=== PATIENT | female | born 1940 | race Caucasian/White ===

== ENCOUNTER → 2016-05-30 | Outpatient (CLI) | payer MEDICARE, OTHER ==
[~2016-05-30] MED LIST: ACET-2321 PO; ASPI-1115 PO; CALC1TAB3 PO; CYCL5TAB PO; DOCU-168 PO; DULO60CA56 PO; FERR-49 PO; GABA-336 PO; MULT-934 PO; OXYC-544 PO; RED600CA6 PO; TETR15DR99 BOTH EYES; VITA1TAB21 PO
--- NOTE | 2016-05-30 16:36 | DI ---
Indication: ITS.REASON: S09.90XA HEAD INJURY PROCEDURE: CT HEAD W/O CONTRAST: Encounter: Initial Comparison: September 30, 2015 Technique: Axial CT images through the head were performed without contrast. Iterative Reconstruction dose reducing technique was utilized. FINDINGS: The ventricles are of normal size, shape, and configuration for the patient's age. There is no evidence of acute intracranial hemorrhage, midline displacement, or mass effect. There are scattered areas of low attenuation in the white matter which most likely represent changes of chronic microvascular ischemia. The CT attenuation of the brain parenchyma is otherwise normal within the cerebellum, brain stem, and cerebral hemispheres. The tympanic cavities and mastoid air cells are free of appreciable disease. There are no definite fractures of the skull base, calvarium, or visualized portion of the midface. Frontal scalp swelling and hematoma. IMPRESSION: No CT evidence of acute traumatic intracranial injury. .
--- NOTE | 2016-05-30 16:44 | DI ---
Indication: ITS.REASON: S09.90XA HEAD INJURY PROCEDURE: CT MAXILLOFACIAL W/O CONTRAST: Encounter: Initial Comparison: None Technique: Axial noncontrast CT images through the mid face were performed with coronal and sagittal two-dimensional reformats. Automated Exposure Control and Iterative Reconstruction dose reducing techniques were utilized. Findings: Significant frontal soft tissue swelling and hematoma. No acute maxillofacial fracture identified. The nasal arches appear intact. Paranasal sinuses are grossly clear. Artifact from prior dental restorations. Degenerative change in the right temporomandibular joint noted incidentally. Degenerative change in the visualized upper cervical spine. The globes are intact. Lenses are located. Impression: No acute maxillofacial fracture seen. Prominent frontal extracranial swelling and hematoma. .
== END ==
LOC: IMA 16:02
PROVIDERS: ATTEND Family Medicine
DX: S06.370A Contusion, laceration, and hemorrhage of cerebellum without loss of consciousness, initial encounter (principal); W17.89XA Other fall from one level to another, initial encounter; Y93.01 Activity, walking, marching and hiking; Y92.007 Garden or yard of unspecified non-institutional (private) residence as the place of occurrence of the external cause; Y99.9 Unspecified external cause status; M79.89 Other specified soft tissue disorders

== ENCOUNTER 2017-06-21 15:43 | Inpatient (IN) ==
[2017-06-21 16:42] VITALS: BMI 34.5
[2017-06-21] MEDS ORDERED: DOCUSATE SODIUM 100 MG CAPSULE PO PRN ×2 (18:02→19:02)
[2017-06-21] MEDS ORDERED: SENNA + DOCUSATE TABLET PO PRN (18:02)
[2017-06-21] MEDS ORDERED: FALL RISK - PHARMACY CONSULT MC ONE (18:17)
[2017-06-21] MEDS ORDERED: FUROSEMIDE 20 MG TABLET PO SCH (19:03)
[2017-06-21] MEDS: HYDROCODONE/APAP 5mg/325mg TABLET PO PRN (19:18)
[2017-06-21] MEDS: RIVAROXABAN 20 MG TABLET PO SCH (19:18)
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
--- NOTE | 2017-06-21 22:00 | IRU 24Hr Post Admit Eval ---
24 Hr Post Admission Physical - Relevant Changes Relevant Changes: No Reviewed: I have reviewed the patient's information and concur with the finding and results of the pre-admission screen. Certification: I certify the patient for rehabilitation. - Patient Condition (1) Radius and ulna distal fracture Status: Acute Qualifiers: Encounter type: initial encounter Fracture type: closed Laterality: right Qualified Code(s): S52.501A - Unspecified fracture of the lower end of right radius, initial encounter for closed fracture; S52.601A - Unspecified fracture of lower end of right ulna, initial encounter for closed fracture Code(s): S52.509A - Unspecified fracture of the lower end of unspecified radius , initial encounter for closed fracture; S52.609A - Unspecified fracture of lower end of unspecified ulna, initial encounter for closed fracture Classification: IRF Tx That Should Address Diagnosis, Diagnosis Requiring Medical Follow Up (2) Atrial fibrillation Status: Chronic Qualifiers: Atrial fibrillation type: permanent Qualified Code(s): I48.2 - Chronic atrial fibrillation Code(s): I48.91 - Unspecified atrial fibrillation Classification: Present on IRF Admission, IRF Tx That Should Address Diagnosis, Diagnosis Requiring Medical Follow Up (3) Thrombocytopenia Status: Acute Code(s): D69.6 - Thrombocytopenia, unspecified Classification: Present on IRF Admission, IRF Tx That Should Address Diagnosis, Diagnosis Requiring Medical Follow Up (4) Acute blood loss anemia Status: Acute Code(s): D62 - Acute posthemorrhagic anemia Classification: Present on IRF Admission, IRF Tx That Should Address Diagnosis, Diagnosis Requiring Medical Follow Up - Prior Functional Status Lives With: Alone Residence Type: Apartment/Private Home Assitive Devices: Straight Cane Prior Functional Status: Indep. at home or school, Indep. w/ all home ADL, Indep. w/ IADL - Current Functional Status Current Level of Function: Patient's current level of functioning is as follows: She requires supervision for eating due to the fact that her right wrist has been operated on and she is wearing a cast. She requires minimum assistance for grooming as well as upper and lower body dressing and walking with a single-point cane. She requires moderate assistance for bathing, supervision for toileting and transfers and toilet transfers. She is able to ambulate 160 feet with the single-point cane but as mentioned she is right-hand dominant and there is some concern about safety with using her left hand with ambulation. Patient does have a right toe "drag" during ambulation of uncertain origin or significance. Patient Requirements: The patient requires oversight by rehabilitation physician to manage their rehabilitation treatment plan and multidisciplinary approach to care that can only be provided in an IRF and requires a multidisciplinary approach to care, provided by professional PTs, OTs, STs, dieticians, RTs, rehabilitation nurses and is not available in lesser levels of care. Limitations Req: Mobility Impairment, ADL Impairment Physical Therapy Minutes: 90 Occupational Therapy Minutes: 90 Therapy: The patient is to receive therapy at least 5 days a week. ROM Deficit: Right Upper Extremity - Complications/Comorbidities Impact on Functional Outcomes: The patient's fracture of her dominant hand will negatively impact her functional outcome. Barriers to Discharge: Weakness, Balance, Pain Control - Plan to Avoid Complications Plan to Avoid Complications: The patient cannot receive this care in a lesser intensive setting such as Assisted or Outpatient Therapy due to the patient requiring the following :close monitoring of her blood count in view of the acute blood loss anemia, monitoring of her heart rate in view of atrial fibrillation. She will require close monitoring of her pain management as well as evidence of continued acute blood loss. She requires a multidisciplinary approach with physical therapy, occupational therapy and 24 hour nursing supervision along with medical oversight.
[2017-06-22] MEDS: VITAMIN B COMPLEX + C TABLET PO SCH (08:37)
[2017-06-22] MEDS: CELECOXIB 200 MG CAPSULE PO SCH (08:37)
[2017-06-22] MEDS: CALCIUM CARBONATE 600 MG TABLET PO SCH (08:37)
[2017-06-22] MEDS: DULOXETINE 60 MG CAPSULE PO SCH (08:37)
[2017-06-22] MEDS: CETIRIZINE 10 MG TABLET PO SCH (08:38)
[2017-06-22] MEDS: FUROSEMIDE 20 MG TABLET PO SCH ×2 (08:42→17:49)
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
[2017-06-22] MEDS ORDERED: FUROSEMIDE 20 MG TABLET PO SCH (09:00)
[2017-06-22] MEDS ORDERED: RIVAROXABAN 20 MG TABLET PO SCH (17:30)
[2017-06-22] MEDS: RIVAROXABAN 20 MG TABLET PO SCH (17:50)
[2017-06-22] MEDS: HYDROCODONE/APAP 5mg/325mg TABLET PO PRN (19:40)
[2017-06-23] MEDS: HYDROCODONE/APAP 5mg/325mg TABLET PO PRN ×2 (02:59→20:49)
[2017-06-23] MEDS: CELECOXIB 200 MG CAPSULE PO SCH (08:45)
[2017-06-23] MEDS: VITAMIN B COMPLEX + C TABLET PO SCH (08:46)
[2017-06-23] MEDS: CETIRIZINE 10 MG TABLET PO SCH (08:46)
[2017-06-23] MEDS: FUROSEMIDE 20 MG TABLET PO SCH ×2 (08:46→17:43)
[2017-06-23] MEDS: CALCIUM CARBONATE 600 MG TABLET PO SCH (08:46)
[2017-06-23] MEDS: DULOXETINE 60 MG CAPSULE PO SCH (08:46)
--- NOTE | 2017-06-23 11:02 | IRU Progress Note ---
- Subjective/Serverity of Illness Date: 06/23/17 Cathy is progressing with therapy. She is quite talkative. Reports pain is adequately controlled. She has several concerns regarding eyedrops as well as the hematoma in the right forehead area. This is tender to palpate. However there is no evidence of active infection at present. She has a normal evolution of blood products and bruising involving the right side of her face. The patient's acute blood loss anemia is improved with hemoglobin back up to 11.9. She has no evidence of ongoing bleeding. She denies any chest pain or shortness of breath. Her appetite remains good. She has used eyedrops at home with regard to allergies and dry eyes and we will make these available here as well. Review of therapy notes indicates that the patient has been functioning with contact-guard assistance for transfers and car transfers. Her previously noted low platelet count has resolved. Exam Vital Signs: Temperature 97.8 F 06/23/17 08:00 Pulse Rate 58 L 06/23/17 08:00 Respiratory Rate 16 06/23/17 08:00 Blood Pressure 134/63 06/23/17 08:00 Pulse Oximetry 93 06/23/17 08:00 Height/Weight/BMI: Height 1.47 m Weight 75.3 kg Body Mass Index 34.5 - Constitutional Present: no acute distress, well nourished, well developed, cooperative Comments: Loquacious - Routine HEENT Exam Head: Present: normocephalic Eye: Present: EOMI ENT: Present: mucous membranes moist, oropharynx clear Comments: Hematoma receding a bit in the right forehead area. Extensive ecchymoses with normal evolution of color around the right eye and down to the right cheek. Hematoma is tender. No evidence of infection. - Routine Neck Exam Present: supple - Routine Respiratory Exam Present: CTA bilaterally. Absent: wheezes - Routine Cardiovascular Exam Present: S1, S2, irregularly irregular. Absent: murmur, S3, S4 - Routine Abdominal Exam Present: soft, normoactive bowel sounds, non distended. Absent: tenderness - Routine Extremities Exam Present: no edema, normal capillary refill Comments: Right upper extremity remains in cast. No evidence of neuro-vascular compromise in the exposed fingers. - Routine Skin Exam Present: dry, warm, ecchymosis (Right face) - Routine Neurological Exam Present: alert, oriented X3, CN II-XII intact - Routine Psychiatric Exam Present: normal affect, cooperative, good insight, good judgment, anxious Results IRU - Labs Labs: reviewed chart data and labs IRU A/P (1) Radius and ulna distal fracture Qualifiers: Encounter type: initial encounter Fracture type: closed Laterality: right Qualified Code(s): S52.501A - Unspecified fracture of the lower end of right radius, initial encounter for closed fracture; S52.601A - Unspecified fracture of lower end of right ulna, initial encounter for closed fracture Current visit: No Status: Acute Pain control appears to be adequate. She is cooperative and progressing with therapy. (2) Atrial fibrillation Qualifiers: Atrial fibrillation type: permanent Qualified Code(s): I48.2 - Chronic atrial fibrillation Current visit: Yes Status: Chronic Remains on Xarelto without evidence of further bleeding. (3) Thrombocytopenia Current visit: Yes Status: Resolved Review of platelet count reveals normalization at 245,000. (4) Acute blood loss anemia Current visit: Yes Status: Resolved Repeat hemoglobin shows improvement. No evidence of ongoing bleeding. (5) Allergic conjunctivitis Current visit: Yes Status: Acute DVT Prophylaxis: Xarelto Resuscitation Status: Full Code - Course Hospital Course: Remington Wilson MD: 06/23/17 11:04 Patient is quite talkative which delays progress a bit. Denies dyspnea. Pain management adequate. Would like some eyedrops for dry eyes. Progressing with therapy. Hemoglobin repeat is improved. - Interventions to Obtain Goals PT Treatment Plan: Balance/Proprioception, Functional Activities, Gait Training , Patient/Family Education, Therapeutic Exercise OT Treatment Plan: ADL (Basic Care), Balance Training, IADL, Pt./Family Education, Ther. Exercise for ADL Goals Progress/Modifications: Discussed with patient her progress. She is cooperative with therapy. We will add on some eyedrops for dry eyes. She remains on Xarelto without active bleeding. Her hemoglobin is improved and platelets have returned to normal.Please note that the patient's individual plan of care was developed and documented today, requiring review of therapy notes, medical conditions and anticipated functional recovery. This required additional medical decision making with regard to interaction of the patient's medical issues with the anticipated functional recovery. Please see separate document.
--- NOTE | 2017-06-23 11:08 | IRU Plan of Care ---
[facility] Overall Plan of Care - Date Date: 06/23/17 - Patient Impairments (1) Radius and ulna distal fracture Qualifiers: Encounter type: initial encounter Fracture type: closed Laterality: right Qualified Code(s): S52.501A - Unspecified fracture of the lower end of right radius, initial encounter for closed fracture; S52.601A - Unspecified fracture of lower end of right ulna, initial encounter for closed fracture Code(s): S52.509A - Unspecified fracture of the lower end of unspecified radius , initial encounter for closed fracture; S52.609A - Unspecified fracture of lower end of unspecified ulna, initial encounter for closed fracture Status: Acute Classification: IRF Tx That Should Address Diagnosis, Diagnosis Requiring Medical Follow Up (2) Atrial fibrillation Qualifiers: Atrial fibrillation type: permanent Qualified Code(s): I48.2 - Chronic atrial fibrillation Code(s): I48.91 - Unspecified atrial fibrillation Status: Chronic Classification: Present on IRF Admission, IRF Tx That Should Address Diagnosis, Diagnosis Requiring Medical Follow Up (3) Thrombocytopenia Code(s): D69.6 - Thrombocytopenia, unspecified Status: Resolved Classification: Present on IRF Admission, IRF Tx That Should Address Diagnosis, Diagnosis Requiring Medical Follow Up (4) Acute blood loss anemia Code(s): D62 - Acute posthemorrhagic anemia Status: Resolved Classification: Present on IRF Admission, IRF Tx That Should Address Diagnosis, Diagnosis Requiring Medical Follow Up (5) Allergic conjunctivitis Qualifiers: Laterality: bilateral Qualified Code(s): H10.13 - Acute atopic conjunctivitis, bilateral Code(s): H10.10 - Acute atopic conjunctivitis, unspecified eye Status: Acute Classification: IRF Tx That Should Address Diagnosis - Relevant Changes Relevant Changes: No Reviewed: I have reviewed the patient's information and concur with the finding and results of the pre-admission screen. Certification: I certify the patient for rehabilitation. - Medical Prognosis Medical Prognosis: Good Vital Signs: Last Vital Signs Temp 97.8 F 06/23/17 08:00 Pulse 58 L 06/23/17 08:00 Resp 16 06/23/17 08:00 BP 134/63 06/23/17 08:00 Pulse Ox 93 06/23/17 08:00 - Anticipated Interventions Anticipated Interventions: The patient requires inpatient IRF care for PT, OT, and/or ST for residuals remaining from fracture of right distal radius and ulnar with surgical repair resulting in muscular weakness and strength deficits. ROM Deficit: Right Upper Extremity Strength Deficits: Right Upper Extremity - Current Functional Status Failed Alternative Therapy: Arrived from Acute Care Patient Requires: The patient requires oversight by rehabilitation physician to manage their rehabilitation treatment plan and multidisciplinary approach to care that can only be provided in an IRF and requires a multidisciplinary approach to care, provided by professional PTs, OTs, STs, rehabilitation nurses, and may require STs, dieticians, and RTS. This is not available in lesser levels of care. Physical Therapy Minutes: 90 Occupational Therapy Minutes: 90 Therapy: The patient is to receive therapy at least 5 days a week. - Anticipated LOS/Outcomes Anticipated Functional Outcome: It is anticipated the patient will be able to return to her own home at modified independent level of functioning, able to perform ADLs and safely care for herself. It is anticipated her pain will be controlled and her hemoglobin will be stable. Anticipated Length of Stay (days): 4 Anticipated DC Destination: Home, Self Prison Safety Plan: The patient will be provided with the development of a Home Safety Plan for return to a home or home-like environment and and to ensure safety post discharge. - Plan to Avoid Complications Barriers to Attaining Goals: Weakness, Balance Plan to Avoid Complications: The patient cannot receive this care in a lesser intensive setting such as Senior Care or Outpatient Therapy due to the patient requiring the following : Patient requires 24 hour rehabilitation nursing monitoring for pain control, evidence of continued bleeding as well as a multidisciplinary approach with PT and OT and medical supervision. This is best achieved in the inpatient rehabilitation setting.
[2017-06-23] MEDS: RIVAROXABAN 20 MG TABLET PO SCH (17:43)
[2017-06-24] MEDS: HYDROCODONE/APAP 5mg/325mg TABLET PO PRN ×2 (04:52→17:14)
[2017-06-24] MEDS: CELECOXIB 200 MG CAPSULE PO SCH (09:01)
[2017-06-24] MEDS: VITAMIN B COMPLEX + C TABLET PO SCH (09:01)
[2017-06-24] MEDS: CETIRIZINE 10 MG TABLET PO SCH (09:01)
[2017-06-24] MEDS: DULOXETINE 60 MG CAPSULE PO SCH (09:01)
[2017-06-24] MEDS: FUROSEMIDE 20 MG TABLET PO SCH ×2 (09:01→17:11)
[2017-06-24] MEDS: CALCIUM CARBONATE 600 MG TABLET PO SCH (09:01)
[2017-06-24] MEDS: RIVAROXABAN 20 MG TABLET PO SCH (17:11)
[2017-06-24] MEDS: ARTIFICIAL TEARS 15ml EACH EYE PRN (21:05)
[2017-06-25] MEDS: DULOXETINE 60 MG CAPSULE PO SCH (09:17)
[2017-06-25] MEDS: CELECOXIB 200 MG CAPSULE PO SCH (09:17)
[2017-06-25] MEDS: FUROSEMIDE 20 MG TABLET PO SCH ×2 (09:18→17:49)
[2017-06-25] MEDS: CALCIUM CARBONATE 600 MG TABLET PO SCH (09:18)
[2017-06-25] MEDS: CETIRIZINE 10 MG TABLET PO SCH (09:18)
[2017-06-25] MEDS: HYDROCODONE/APAP 5mg/325mg TABLET PO PRN ×2 (09:22→19:26)
[2017-06-25] MEDS: VITAMIN B COMPLEX + C TABLET PO SCH (09:23)
[2017-06-25] MEDS: RIVAROXABAN 20 MG TABLET PO SCH (17:49)
[2017-06-25] MEDS: ARTIFICIAL TEARS 15ml EACH EYE PRN (22:02)
[2017-06-26] MEDS: HYDROCODONE/APAP 5mg/325mg TABLET PO PRN ×2 (02:51→09:15)
[2017-06-26] MEDS: CELECOXIB 200 MG CAPSULE PO SCH (08:45)
[2017-06-26] MEDS: CETIRIZINE 10 MG TABLET PO SCH (08:45)
[2017-06-26] MEDS: CALCIUM CARBONATE 600 MG TABLET PO SCH (08:45)
[2017-06-26] MEDS: DULOXETINE 60 MG CAPSULE PO SCH (08:45)
[2017-06-26] MEDS: VITAMIN B COMPLEX + C TABLET PO SCH (08:45)
[2017-06-26] MEDS: FUROSEMIDE 20 MG TABLET PO SCH ×2 (08:46→17:37)
--- NOTE | 2017-06-26 10:48 | IRU Progress Note ---
- Subjective/Serverity of Illness Date: 06/26/17 Cathy was interviewed and examined in her room on inpatient rehabilitation. She states that her bowels are moving well and she would like to not be offered the Colace etc. This will be discontinued per her request. She does note some ecchymoses of the right fingers as well as up into the right elbow area. This is the affected side from her surgery. She is on Xarelto and realizes this as well. Pain appears to be adequately controlled. She is using an ice pack. Brief therapy update: Lower body dressing requires contact-guard assistance for upper body dressing is now independent. Toilet transfers are with standby assist. Bed/chair/wheelchair transfers are with contact-guard assistance. She is able to ambulate 184 feet with standby assistance with a straight cane although has poor balance and poor safety awareness. Update on medical issues reactively monitoring and managing as follows: 1. Status post open reduction internal fixation of right distal radial fracture. Patient also has distal ulnar fracture. Her pain is adequately controlled. She has several questions about the fracture which I attempted to address. She is wearing her sling and able to manage reasonably well. She is improving with therapy. 2. Acute blood loss anemia with hemoglobin dropping from 13.1 on June 18 down to 10.8 on 06/21/2017. Hemoglobin has been stable at 11.5 here on rehabilitation. 3. Thrombocytopenia at 112,000. Other than the anticipated bruising with regard to the fracture, she has evidenced no sign of active bleeding. Her platelets have now normalized at over 300,000. 4. Atrial fibrillation, on chronic anti-coagulation with Xarelto. She remains on Xarelto without known side effects. Her atrial fibrillation is stable and without evidence of rapid ventricular response. Exam Vital Signs: Temperature 98.6 F 06/26/17 08:00 Pulse Rate 64 06/26/17 08:00 Respiratory Rate 18 06/26/17 08:00 Blood Pressure 138/61 06/26/17 08:00 Pulse Oximetry 96 06/26/17 08:00 Height/Weight/BMI: Height 1.47 m Weight 74 kg Body Mass Index 34.5 - Constitutional Present: no acute distress, well nourished, well developed, obese, cooperative - Routine HEENT Exam Eye: Present: EOMI ENT: Present: mucous membranes moist, oropharynx clear - Routine Neck Exam Present: supple - Routine Respiratory Exam Present: CTA bilaterally. Absent: wheezes - Routine Cardiovascular Exam Present: S1, S2, irregularly irregular. Absent: murmur, S3, S4 - Routine Abdominal Exam Present: soft, normoactive bowel sounds, non distended. Absent: tenderness - Routine Extremities Exam Present: no edema, normal capillary refill Comments: There is the typical expected amount of ecchymoses involving the right fingers. Fingers are moving adequately and there is no evidence of vascular nor neurologic compromise. - Routine Skin Exam Present: dry, warm, ecchymosis - Routine Neurological Exam Present: alert, oriented X3, CN II-XII intact - Routine Psychiatric Exam Present: normal affect, normal thought process, cooperative, anxious Results IRU - Labs Labs: I have reviewed her laboratory and other providers notes. IRU A/P (1) Radius and ulna distal fracture Qualifiers: Encounter type: initial encounter Fracture type: closed Laterality: right Qualified Code(s): S52.501A - Unspecified fracture of the lower end of right radius, initial encounter for closed fracture; S52.601A - Unspecified fracture of lower end of right ulna, initial encounter for closed fracture Current visit: No Status: Acute Clinically she seems to be doing well with regard to the fracture. She does have the expected amount of ecchymoses but there is no evidence of vascular nor neurologic compromise distally. Pain is adequately controlled. (2) Atrial fibrillation Qualifiers: Atrial fibrillation type: permanent Qualified Code(s): I48.2 - Chronic atrial fibrillation Current visit: Yes Status: Chronic Seems to be in chronic atrial fibrillation. Tolerating Xarelto without difficulty. (3) Thrombocytopenia Current visit: Yes Status: Resolved (4) Acute blood loss anemia Current visit: Yes Status: Resolved (5) Allergic conjunctivitis Qualifiers: Laterality: bilateral Qualified Code(s): H10.13 - Acute atopic conjunctivitis, bilateral Current visit: Yes Status: Acute DVT Prophylaxis: Xarelto Resuscitation Status: Full Code - Course Hospital Course: Remington Wilson MD: 06/23/17 11:04 Patient is quite talkative which delays progress a bit. Denies dyspnea. Pain management adequate. Would like some eyedrops for dry eyes. Progressing with therapy. Hemoglobin repeat is improved. 06/26/17 10:50 Discontinue Colace. Tolerating therapy well and improving. Pain management adequate. - Interventions to Obtain Goals PT Treatment Plan: Balance/Proprioception, Functional Activities, Gait Training , Patient/Family Education, Therapeutic Exercise OT Treatment Plan: ADL (Basic Care), Balance Training, IADL, Pt./Family Education, Ther. Exercise for ADL Goals Progress/Modifications: She requests that we discontinue the Colace which was accomplished this morning. She has several questions about her fracture and ecchymoses etc. These were addressed. Exam of the right hand indicates good healing and no evidence of neurovascular compromise. She has questions about the sling. She does have evidence of poor balance and poor safety awareness. Despite this she is improving with both PT and OT.
--- NOTE | 2017-06-26 12:52 | Progress Note ---
- Date 06/26/17 Subjective: Cathy was seen before lunch. She thinks the bruising is better on her face, but now has more bruising/swelling to her left arm, distal to her splint. She has chronic paresthesias to her hands. She reports occasional dizziness. She denies chest pain or dyspnea. She denies abdominal pain or nausea. She thinks she's on too many laxatives and asked to reduce those meds. Objective Vital signs: Temperature 98.6 F 06/26/17 08:00 Pulse Rate 64 06/26/17 08:00 Respiratory Rate 18 06/26/17 08:00 Blood Pressure 138/61 06/26/17 08:00 Pulse Oximetry 96 06/26/17 08:00 Height/Weight/BMI: Height 1.47 m Weight 74 kg Body Mass Index 34.5 - Constitutional Present: no acute distress, well nourished, well developed - Routine HEENT Exam Head: Present: hematoma (hematoma to right forehead is slowly improving. The bruising/swelling on the right side of her face is fading.). Absent: atraumatic Eye: Present: PERRL. Absent: conjunctival icterus, scleral injection ENT: Present: oropharynx clear - Routine Respiratory Exam Present: CTA bilaterally - Routine Cardiovascular Exam Present: RRR, S1, S2 - Routine Abdominal Exam Present: soft, normoactive bowel sounds, non distended, non tender - Routine Extremities Exam Present: edema (BLE) Comments: compression socks in place (she brought hers from home) - Routine Musculoskeletal Exam Musculoskeletal: Present: other (splint to right forearm) - Routine Skin Exam Present: intact, dry, warm - Routine Neurological Exam Present: alert, oriented X3, moving all extremities, vision grossly intact, hearing grossly intact, normal speech - Routine Psychiatric Exam Present: normal affect, normal thought process, cooperative Results - Labs CBC & Chem 7: 06/26/17 04:35 06/26/17 04:35 Assessment and Plan Assessment and Plan: ASSESSMENT S/P ORIF right radius/ulnar fracture ABLA Minor head injury: Hematoma/contusion right forehead Hypernatremia Atrial fibrillation, on Xarelto Hx breast CA 2006 without known recurrence Allergic rhinitis OA PLAN Hgb stable at 11.5. Hypernatremia has resolved. She has applied her own compression socks for leg edema. Weights have been stable. Vitals stable. DVT Prophylaxis: Xarelto Resuscitation Status: Full Code - Physician Narrative Physician: Fatou Sandoval MD Narrative: Date: 06/26/17 Time: 1835 Ms. Valentine was independently interviewed and examined by me. She is just back from dinner and trying to take a nap. She denies any complaints. Specifically no fever or chills. No shortness of breath. No cough or sputum production. No chest pain or palpitations. No nausea, vomiting, diarrhea or constipation. She has requested to back off the stool softeners as her bowels are moving really really well. She does have some mild lower extremity edema and is wearing compression stockings at this time. Physical exam: Gen: alert and oriented. NAD Skin: warm and dry, considerable ecchymosis on the right side of her face, the not on her right sided for head looks a little smaller today HEENT: NC/AT PERRL, EOMI, Sclera, lids and conjunctiva wnl, MMM, OP clear Neck: supple. No JVD, Carotids 2+ without bruits. Lungs: clear, No rales, rhonchi, wheezes. CV: regular. Soft murmur Abd: soft. NT/ND, +BS MS: 2+ edema Good strength and ROM. Right arm in cast Neuro: No focal deficit Psy: normal mood and affect I have reviewed the patient's labs, notes and imaging. Patient was discussed with nurse practitioner and I agree with the assessment and plan as documented above. Hospital Course Summary Disclaimer: The visit summary below is not to be considered part of the above Progress Note. Hospital Course: 06/22/17 PT/OT per attending to address functional deficits from ORIF and safe ambulation d/t intermittent dizziness. ABLA - hgb improved to 11.9 Hypernatremia (Na 149) - encourage PO intake. A-fib - EKG showed sinus. Cont Xarelto. Fluid retention - daily weights 06/26/17 Hgb stable at 11.5. Hypernatremia has resolved. She has applied her own compression socks for leg edema. Weights have been stable.
--- NOTE | 2017-06-26 13:58 | IRU Team Meeting ---
IRU Team Meeting - Nursing Bladder Assistive Devices Utilized:: Absorbent Pad Bladder Management Level of Assist: Modified Independent Bladder Frequency of Accidents: No accidents Bowel Assistive Devices Utilized:: Medication Bowel Management Level of Assist: Modified Independent Bowel Frequency of Accidents: No accidents Vital Signs: Vital Signs - 24 hr 06/25/17 16:00 06/25/17 19:20 06/26/17 08:00 Temperature 98.0 F 98.0 F 98.6 F Pulse Rate 56 L 67 64 Respiratory Rate 18 14 18 Blood Pressure 132/60 137/59 138/61 Pulse Oximetry 93 99 96 Current Medications: Acetaminophen (Tylenol) 500 mg PO Q4H PRN PRN Reason: Pain Hydrocodone Bitart/Acetaminophen ([place] 5/325) 1 - 2 tab PO Q6H PRN PRN Reason: Pain Last Admin: 06/26/17 09:15 Dose: 1 tab Artificial Tears (Tears Naturale) 1 drops EACH EYE PRN PRN PRN Reason: Dry eyes Last Admin: 06/25/17 22:02 Dose: 1 drops Calcium Carbonate (Caltrate) 600 mg PO DAILY [facility] Last Admin: 06/26/17 08:45 Dose: 600 mg Celecoxib (Celebrex) 200 mg PO WB [facility] Last Admin: 06/26/17 08:45 Dose: 200 mg Cetirizine HCl (Zyrtec) 10 mg PO DAILY [facility] Last Admin: 06/26/17 08:45 Dose: 10 mg Duloxetine HCl (Cymbalta) 60 mg PO DAILY [facility] Last Admin: 06/26/17 08:45 Dose: 60 mg Furosemide (Lasix 20 Mg Tab) 10 mg PO [id number] [facility] Last Admin: 06/26/17 08:46 Dose: 10 mg Magnesium Hydroxide (Mom) 30 ml PO DAILY PRN PRN Reason: Constipation Multivitamins (Total B + C) 1 tab PO DAILY [facility] Last Admin: 06/26/17 08:45 Dose: 1 tab Potassium Chloride (K-Dur 20 Meq Tablet) 20 meq PO BIDWM [facility] Last Admin: 06/26/17 08:45 Dose: 20 meq Rivaroxaban (Xarelto) 20 mg PO WS [facility] Last Admin: 06/25/17 17:49 Dose: 20 mg Current Medical Issues: fracture of distal ulna and radius, atrial fib, acute blood loss anemia Comments: I certify that I personally led the interdisciplinary team meeting and agree with comments, barriers and goals indicated. Team meeting was held in the patient's room with the patient and the following family members present: patient's daughter Vero via speakerphone Ms. Valentine is very cooperative. Pain management is adequate. She finds most benefit by the use of an ice pack on the left forearm. Her anemia is stable to improved at 11.5. She is progressing with therapy. - Physical Therapy Bed, Chair, Wheelchair Transfer Assist: Contact Guard Assistance Ambulation Ability: Stand By Assist/Supervision Ambulation Distance: 184 Stair Climbing Ability: Stand By Assist/Supervision, Household Exception Number of Steps Climbed: 4 Car Transfer Ability: Stand By Assist/Supervision Comments: Patient is able to ambulate 184 feet with standby assist to supervision level. She does have reduced safety awareness and some balance issues. She is easily distracted from the task she is attempting to complete by what she is saying. She requires redirection several times during therapy. - Occupational Therapy Eating Ability: Independent Grooming Ability: Independent Bathing Ability: Stand By Assist/Supervision Upper Body Dressing Ability: Independent Lower Body Dressing Ability: Stand By Assist/Supervision Tub Transfer Assist: Patient Refuses Toileting Assist: Stand By Assist/Supervision Toilet Transfer Assist: Stand By Assist/Supervision Comments: She is independent for many activities and ADLs. She is standby assistance supervision for lower body dressing and bathing. She declines to try tub transfer. Barriers include distraction that affect her overall safety and standing. Difficult to stay on task at times. - Goals Physical Therapy Goals: 06/26/17: 1.) Modified [place] with all transfers. 2.) on [place] Balance Assessment Occupational Therapy Goals: OT goals 06/26/17: 1.) Modified independence with lower body dressing. 2.) Simple meal prep with modified independence. - Barriers to Discharge Barriers to Attaining Goals: Endurance (encouraging fewer rest breaks) - Care Plan Anticipated Length of Stay (days): 4 Anticipated DC Destination: Home, Self Care, Home Health Service I have led this team conference and agree with the plan. Interventions/Goals: Continued work on balance and safety concerns will be undertaken along with ADLs. Anticipate safe transfer to home on June 30
[2017-06-26] MEDS: RIVAROXABAN 20 MG TABLET PO SCH (17:36)
[2017-06-27] MEDS: ARTIFICIAL TEARS 15ml EACH EYE PRN ×2 (01:54→21:02)
[2017-06-27] MEDS: CALCIUM CARBONATE 600 MG TABLET PO SCH (08:43)
[2017-06-27] MEDS: CETIRIZINE 10 MG TABLET PO SCH (08:43)
[2017-06-27] MEDS: CELECOXIB 200 MG CAPSULE PO SCH (08:43)
[2017-06-27] MEDS: HYDROCODONE/APAP 5mg/325mg TABLET PO PRN ×2 (08:44→21:02)
[2017-06-27] MEDS: FUROSEMIDE 20 MG TABLET PO SCH ×2 (08:44→17:52)
[2017-06-27] MEDS: VITAMIN B COMPLEX + C TABLET PO SCH (08:44)
[2017-06-27] MEDS: DULOXETINE 60 MG CAPSULE PO SCH (08:44)
--- NOTE | 2017-06-27 11:00 | IRU Progress Note ---
- Subjective/Serverity of Illness Date: 06/27/17 Cathy was interviewed and examined in her room. She denies any chest pain or shortness of breath. Continues to have an irregular heart rhythm. We discussed home health at length. She feels comfortable with the progress that she is making as do we. Her progress is good. Continues to get easily distracted as she pursues ADLs and other activities. However she is improving. Safety awareness and balance continue to be issues. Exam Vital Signs: Temperature 98.4 F 06/27/17 08:00 Pulse Rate 74 06/27/17 08:00 Respiratory Rate 16 06/27/17 08:00 Blood Pressure 129/65 06/27/17 08:00 Pulse Oximetry 97 06/27/17 08:00 Height/Weight/BMI: Height 1.47 m Weight 73.3 kg Body Mass Index 34.5 - Constitutional Present: no acute distress, well nourished, well developed, obese, cooperative Comments: loquacious - Routine HEENT Exam Eye: Present: EOMI ENT: Present: mucous membranes moist, oropharynx clear Comments: Right forehead hematoma and right-sided facial ecchymoses are demonstrating typical evolution. - Routine Neck Exam Present: supple - Routine Respiratory Exam Present: CTA bilaterally. Absent: wheezes - Routine Cardiovascular Exam Present: S1, S2, irregularly irregular. Absent: murmur, S3, S4 - Routine Abdominal Exam Present: soft, normoactive bowel sounds, non distended. Absent: tenderness - Routine Extremities Exam Present: no edema, normal capillary refill - Routine Skin Exam Present: dry, warm, ecchymosis (right hand fingers) - Routine Neurological Exam Present: alert, oriented X3, CN II-XII intact - Routine Psychiatric Exam Present: normal affect, anxious IRU A/P (1) Radius and ulna distal fracture Qualifiers: Encounter type: initial encounter Fracture type: closed Laterality: right Qualified Code(s): S52.501A - Unspecified fracture of the lower end of right radius, initial encounter for closed fracture; S52.601A - Unspecified fracture of lower end of right ulna, initial encounter for closed fracture Current visit: No Status: Acute Pain control appears to be adequate. She is making functional progress. (2) Atrial fibrillation Qualifiers: Atrial fibrillation type: permanent Qualified Code(s): I48.2 - Chronic atrial fibrillation Current visit: Yes Status: Chronic No evidence of active bleeding. Continue Xarelto. (3) Thrombocytopenia Current visit: Yes Status: Resolved (4) Acute blood loss anemia Current visit: Yes Status: Resolved (5) Allergic conjunctivitis Qualifiers: Laterality: bilateral Qualified Code(s): H10.13 - Acute atopic conjunctivitis, bilateral Current visit: Yes Status: Acute DVT Prophylaxis: Xarelto Resuscitation Status: Full Code - Course Hospital Course: Remington Wilson MD: 06/23/17 11:04 Patient is quite talkative which delays progress a bit. Denies dyspnea. Pain management adequate. Would like some eyedrops for dry eyes. Progressing with therapy. Hemoglobin repeat is improved. 06/26/17 10:50 Discontinue Colace. Tolerating therapy well and improving. Pain management adequate. 06/27/17 10:59 Continue working on balance, ADLs and safety awareness. Medically she seems stable. - Interventions to Obtain Goals PT Treatment Plan: Balance/Proprioception, Functional Activities, Gait Training , Patient/Family Education, Therapeutic Exercise OT Treatment Plan: ADL (Basic Care), Balance Training, IADL, Pt./Family Education, Ther. Exercise for ADL
[2017-06-27] MEDS: RIVAROXABAN 20 MG TABLET PO SCH (17:23)
[2017-06-28] MEDS: ACETAMINOPHEN 500 MG TABLET PO PRN (05:58)
[2017-06-28] MEDS: VITAMIN B COMPLEX + C TABLET PO SCH (08:33)
[2017-06-28] MEDS: CELECOXIB 200 MG CAPSULE PO SCH (08:33)
[2017-06-28] MEDS: DULOXETINE 60 MG CAPSULE PO SCH (08:33)
[2017-06-28] MEDS: CALCIUM CARBONATE 600 MG TABLET PO SCH (08:34)
[2017-06-28] MEDS: FUROSEMIDE 20 MG TABLET PO SCH ×2 (08:34→17:15)
[2017-06-28] MEDS: CETIRIZINE 10 MG TABLET PO SCH (08:34)
[2017-06-28] MEDS: ARTIFICIAL TEARS 15ml EACH EYE PRN (10:15)
--- NOTE | 2017-06-28 10:39 | IRU Progress Note ---
- Subjective/Serverity of Illness Date: 06/28/17 Cathy was interviewed and examined in her room on the inpatient rehabilitation with therapies present. She reports a bit more discomfort in the right wrist. Recommended elevation as needed. She is doing some range of motion with the right shoulder and right elbow. Edema involving the right 4 fingers is much improved. Ecchymoses remain. She does have the hematoma in the right forehead which was again inspected and palpated today. Minimally tender but no evidence of infection. Ecchymoses involving the right side of the face are subsiding. She denies any chest pain and denies shortness of breath. She is progressing with therapy. Exam Vital Signs: Temperature 97.9 F 06/28/17 08:00 Pulse Rate 57 L 06/28/17 08:00 Respiratory Rate 18 06/28/17 08:00 Blood Pressure 151/69 H 06/28/17 08:00 Pulse Oximetry 94 06/28/17 08:00 Height/Weight/BMI: Height 1.47 m Weight 73.1 kg Body Mass Index 34.5 - Constitutional Present: no acute distress, well nourished, well developed, cooperative - Routine HEENT Exam Head: Present: normocephalic Eye: Present: EOMI ENT: Present: mucous membranes moist, oropharynx clear - Routine Neck Exam Present: supple - Routine Respiratory Exam Present: CTA bilaterally. Absent: wheezes, crackles - Routine Cardiovascular Exam Present: S1, S2, irregularly irregular. Absent: murmur - Routine Abdominal Exam Present: soft, normoactive bowel sounds, non distended. Absent: tenderness - Routine Extremities Exam Present: no edema, normal capillary refill - Routine Skin Exam Present: dry, warm, ecchymosis Comments: Ecchymoses and right side of face subsiding a bit. Hematoma noted right forehead , smaller and noninfected. - Routine Neurological Exam Present: alert, oriented X3, CN II-XII intact - Routine Psychiatric Exam Present: normal affect, cooperative, anxious IRU A/P (1) Radius and ulna distal fracture Qualifiers: Encounter type: initial encounter Fracture type: closed Laterality: right Qualified Code(s): S52.501A - Unspecified fracture of the lower end of right radius, initial encounter for closed fracture; S52.601A - Unspecified fracture of lower end of right ulna, initial encounter for closed fracture Current visit: No Status: Acute Some increased discomfort although not substantially so. Swelling of fingers improved. Some ecchymoses noted. (2) Atrial fibrillation Qualifiers: Atrial fibrillation type: permanent Qualified Code(s): I48.2 - Chronic atrial fibrillation Current visit: Yes Status: Chronic [place] on Xarelto without known bleeding at present. (3) Thrombocytopenia Current visit: Yes Status: Resolved (4) Acute blood loss anemia Current visit: Yes Status: Resolved (5) Allergic conjunctivitis Qualifiers: Laterality: bilateral Qualified Code(s): H10.13 - Acute atopic conjunctivitis, bilateral Current visit: Yes Status: Acute DVT Prophylaxis: Xarelto Resuscitation Status: Full Code - Course Hospital Course: Remington Wilson MD: 06/23/17 11:04 Patient is quite talkative which delays progress a bit. Denies dyspnea. Pain management adequate. Would like some eyedrops for dry eyes. Progressing with therapy. Hemoglobin repeat is improved. 06/26/17 10:50 Discontinue Colace. Tolerating therapy well and improving. Pain management adequate. 06/27/17 10:59 Continue working on balance, ADLs and safety awareness. Medically she seems stable. 06/28/17 10:39 She is improving with regard to functional gains. Safety awareness continues to be an issue. Some increased pain in the right wrist but clinically stable. - Interventions to Obtain Goals PT Treatment Plan: Balance/Proprioception, Functional Activities, Gait Training , Patient/Family Education, Therapeutic Exercise OT Treatment Plan: ADL (Basic Care), Balance Training, IADL, Pt./Family Education, Ther. Exercise for ADL
[2017-06-28] MEDS: HYDROCODONE/APAP 5mg/325mg TABLET PO PRN ×2 (11:50→21:33)
[2017-06-28] MEDS: RIVAROXABAN 20 MG TABLET PO SCH (17:15)
[2017-06-29 08:10] VITALS: RESP 16
[2017-06-29] MEDS: CETIRIZINE 10 MG TABLET PO SCH (08:51)
[2017-06-29] MEDS: CELECOXIB 200 MG CAPSULE PO SCH (08:51)
[2017-06-29] MEDS: DULOXETINE 60 MG CAPSULE PO SCH (08:51)
[2017-06-29] MEDS: VITAMIN B COMPLEX + C TABLET PO SCH (08:51)
[2017-06-29] MEDS: FUROSEMIDE 20 MG TABLET PO SCH ×2 (08:51→16:32)
[2017-06-29] MEDS: CALCIUM CARBONATE 600 MG TABLET PO SCH (08:52)
[2017-06-29] MEDS: ACETAMINOPHEN 500 MG TABLET PO PRN (08:55)
[2017-06-29] MEDS: HYDROCODONE/APAP 5mg/325mg TABLET PO PRN (15:31)
[2017-06-29] MEDS: RIVAROXABAN 20 MG TABLET PO SCH (16:37)
[2017-06-30] MEDS: VITAMIN B COMPLEX + C TABLET PO SCH (08:37)
[2017-06-30] MEDS: FUROSEMIDE 20 MG TABLET PO SCH ×2 (08:37→17:19)
[2017-06-30] MEDS: CETIRIZINE 10 MG TABLET PO SCH (08:38)
[2017-06-30] MEDS: CELECOXIB 200 MG CAPSULE PO SCH (08:38)
[2017-06-30] MEDS: CALCIUM CARBONATE 600 MG TABLET PO SCH (08:38)
[2017-06-30] MEDS: DULOXETINE 60 MG CAPSULE PO SCH (08:38)
[2017-06-30] MEDS ORDERED: FALL RISK - PHARMACY CONSULT MC ONE (09:13)
--- NOTE | 2017-06-30 10:17 | IRU Progress Note ---
- Subjective/Serverity of Illness Date: 06/30/17 Cathy was evaluated in her room on inpatient rehabilitation. She remains on Xarelto without evidence of active bleeding. She would like just a few pain pills to go home with. Otherwise she has done quite well. Review of therapy notes indicates that she is modified independent to independent for most activities. She is able to ambulate with a straight cane. She does have some degree of balance issues but is felt to be safe to go home with home health assistance. Edema in her fingers is nearly resolved. The right facial ecchymosis is also significantly improved. She does have trace of bilateral lower extremity edema. We discussed the importance of support hosiery which she has available and can don/doff. Exam Vital Signs: Temperature 98.1 F 06/30/17 07:18 Pulse Rate 62 06/30/17 07:18 Respiratory Rate 16 06/29/17 20:09 Blood Pressure 142/59 H 06/30/17 07:18 Pulse Oximetry 96 06/30/17 07:18 Height/Weight/BMI: Height 1.47 m Weight 72.5 kg Body Mass Index 34.5 - Constitutional Present: well nourished, well developed, cooperative - Routine HEENT Exam Eye: Present: EOMI ENT: Present: mucous membranes moist, oropharynx clear - Routine Respiratory Exam Present: CTA bilaterally. Absent: wheezes - Routine Cardiovascular Exam Present: S1, S2, irregularly irregular. Absent: murmur - Routine Abdominal Exam Present: soft, normoactive bowel sounds, non distended. Absent: tenderness - Routine Extremities Exam Present: edema (trace bilat LE), normal capillary refill - Routine Skin Exam Present: dry, warm, ecchymosis (involving the right facial area. Hematoma likewise is receding and right forehead/religious area) - Routine Neurological Exam Present: alert, oriented X3, CN II-XII intact - Routine Psychiatric Exam Present: normal affect, cooperative, anxious Results IRU - Labs Labs: Have reviewed labs. Also reviewed other providers notes. IRU A/P (1) Radius and ulna distal fracture Qualifiers: Encounter type: initial encounter Fracture type: closed Laterality: right Qualified Code(s): S52.501A - Unspecified fracture of the lower end of right radius, initial encounter for closed fracture; S52.601A - Unspecified fracture of lower end of right ulna, initial encounter for closed fracture Current visit: No Status: Acute She is felt to be stable for dismissal later today. (2) Atrial fibrillation Qualifiers: Atrial fibrillation type: permanent Qualified Code(s): I48.2 - Chronic atrial fibrillation Current visit: Yes Status: Chronic (3) Thrombocytopenia Current visit: Yes Status: Resolved (4) Acute blood loss anemia Current visit: Yes Status: Resolved (5) Allergic conjunctivitis Qualifiers: Laterality: bilateral Qualified Code(s): H10.13 - Acute atopic conjunctivitis, bilateral Current visit: Yes Status: Acute DVT Prophylaxis: Xarelto Resuscitation Status: Full Code - Course Hospital Course: Remington Wilson MD: 06/23/17 11:04 Patient is quite talkative which delays progress a bit. Denies dyspnea. Pain management adequate. Would like some eyedrops for dry eyes. Progressing with therapy. Hemoglobin repeat is improved. 06/26/17 10:50 Discontinue Colace. Tolerating therapy well and improving. Pain management adequate. 06/27/17 10:59 Continue working on balance, ADLs and safety awareness. Medically she seems stable. 06/28/17 10:39 She is improving with regard to functional gains. Safety awareness continues to be an issue. Some increased pain in the right wrist but clinically stable. 06/30/17 10:17 Has done well with therapy. Safe for dismissal later today. - Interventions to Obtain Goals PT Treatment Plan: Balance/Proprioception, Functional Activities, Gait Training , Patient/Family Education, Therapeutic Exercise OT Treatment Plan: ADL (Basic Care), Balance Training, IADL, Pt./Family Education, Ther. Exercise for ADL
--- NOTE | 2017-06-30 10:30 | Discharge Summary ---
Discharge Information Date of admission: 06/21/17 15:43 Anticipated date of discharge: 06/30/17 Attending Physician: Remington Wilson MD Primary care physician: Rama Britt MD Consults: 06/21/17 18:02 Physician Consult [CONS] Routine Consulting Provider: Fatou Sandoval Reason For Exam: Medical management Ordering Provider has Notified Manager Internet: No - Discharge Diagnosis (1) Radius and ulna distal fracture Status: Acute (2) Atrial fibrillation Status: Chronic (3) Thrombocytopenia Status: Resolved (4) Acute blood loss anemia Status: Resolved (5) Allergic conjunctivitis Status: Acute 1. Status post open reduction internal fixation of fracture of right radius 2. Fracture left ulna 3. Atrial fibrillation, chronic, on anticoagulation 4. Thrombocytopenia-resolved 5. Acute blood loss anemia - Laboratory Labs: 06/26/17 04:35 06/26/17 04:35 History of Present Illness HPI: Ms. Valentine is a very pleasant 77-year-old female referred by Dr. Reji Cruz. She had fallen at home on 06/18/2017 resulting in fracture of the distal radius and ulna of her right forearm. She also developed a hematoma on the right lateral forehead area as well as ecchymoses. CT of the head and cervical spine are unremarkable. Patient was taken to surgery by Dr. Cruz on 06/20/2017 under peripheral block. At that time open reduction internal fixation of right displaced distal radius fracture was performed without complications. In addition the patient developed acute blood loss anemia with hemoglobin dropping from 13.1 on June 18 down to 10.8 on 06/21/2017. Etiology was not clear. Also she developed thrombocytopenia at 112,000 and was at risk of bleeding. She was on Xarelto chronically for her atrial fibrillation which also needed to be monitored. She developed multiple functional deficits and was felt to be a good candidate for inpatient rehabilitation where she was transferred. Hospital Course This is a general summary of the patient's hospital course. For more details refer to the complete medical record. She was transferred to acute inpatient rehabilitation on 06/21/2017 as she was not stable to go home at that time. In addition she required multiple therapeutic modalities and medical supervision in view of the acute blood loss anemia, atrial fibrillation and use of Xarelto. She was followed by the hospitalist service as well as Dr. Wilson, Pharmacy Consultant. Her platelet count resolved at 245,000 and then 311,000 on rehabilitation. Hemoglobin was initially 11.9 and then 11.5 and was thus stable. She had no further evidence of active bleeding. She did complain of some discomfort in the right wrist but this was treated best with an ice pack as well as some pain medication. The following levels of functional competence are to be considered preliminary information. The reader is encouraged to refer to actual therapy notes and reports for specific details. She was seen by occupational therapy and had the following functional levels at the time of dismissal: She was able to bases simply with adaptive devices and otherwise independently. Upper and lower body dressing were independent. She was seen by physical therapy and have the following functional levels of activity at the time of dismissal: She was able to transfer with modified independent level (using assistive device only). She was able to ambulate over 800 feet with a straight cane. She continued to have easy fatigability and reduced balance but was otherwise felt to be stable for dismissal back to her home environment with home health. It is noted that we did provide her with Hydrocodone/acetaminophen 5/325, #15 at the time of dismissal. Hospital course: 06/22/17 PT/OT per attending to address functional deficits from ORIF and safe ambulation d/t intermittent dizziness. ABLA - hgb improved to 11.9 Hypernatremia (Na 149) - encourage PO intake. A-fib - EKG showed sinus. Cont Xarelto. Fluid retention - daily weights 06/26/17 Hgb stable at 11.5. Hypernatremia has resolved. She has applied her own compression socks for leg edema. Weights have been stable. Time spent with patient: greater than 35 minutes Resuscitation Status: Full Code Discharge Plan - Med Rec/Dispo Referrals/Follow Up: Sue Yepez APRN [Advanced Practice Nurse] - (Sue Yepez APRN on 07/05/17 at 10:15 am for Post-Op follow-up. [phone] [address] [place] [address] [place] [id number]) Rama Britt MD [Primary Care Provider] - (Dr. Julio Cesar Britt on 07/12/17 at 2:30 pm for Hosp. follow-up. [address] [place] [address]) Hair Instructions: Wrist Fracture in Adults (GEN) Prescriptions: Continue Vitamin B Complex [Super B-50 Complex] 1 cap PO DAILY Acetaminophen [Acetaminophen Extra Strength] 500 mg PO Q4H PRN PRN Reason: Pain Cetirizine [Zyrtec] 10 mg PO DAILY Calcium Carbonate [Caltrate] 600 mg PO DAILY Furosemide [Lasix 20 mg Tab] 10 mg PO [id number] Duloxetine [Cymbalta] 60 mg PO DAILY Potassium Chloride 20 meq PO BIDWM Celecoxib [CeleBREX] 200 mg PO WB Rivaroxaban [Xarelto] 20 mg PO HS Milk of Magnesia [Mom] 30 ml PO DAILY PRN udc PRN Reason: Constipation Senna + Docusate [Senna Plus Tablet] 1 tab PO BID PRN PRN Reason: Constipation Docusate Sodium [Colace] 100 mg PO BID PRN #30 cap PRN Reason: Constipation /Stool Softening Changed Hydrocodone/APAP 5/325 [[place] 5/325] 1 tab PO Q6H PRN #15 tab PRN Reason: Pain Discontinued Naproxen Sodium [Aleve] 220 mg PO BID PRN PRN Reason: Pain Nozin Nasal Swab 1 each EDUARDO 0600,1400,2200 - Disposition 01 Discharged Home, Self-Care - Dismissal Complete Discharge Instructions are:: Complete
--- NOTE | 2017-06-30 10:33 | Letter to Referring Physician ---
Dear Dr. Britt, This is a brief note to bring you up-to-date on the status of Vilma Valentine and her stay on the acute inpatient rehabilitation unit at [facility]. As you are likely aware, this patient was admitted to [facility] on 06/18/17 for a fracture of the right distal radius and ulna. She was seen by And was taken to surgery on 06/20/2017 under peripheral block for open reduction internal fixation of right displaced distal radius fracture. The patient was stabilized while on the acute level and admitted to inpatient rehabilitation unit at [facility] on June 21, 2017. While on inpatient rehabilitation, this patient was seen by occupational therapy and physical therapy and improved overall in their functional ability. We also monitored and managed the patient's platelets and hemoglobin while on Acute Rehab. Her platelet count which had been low 112,000 resolved to normal on the rehabilitation at over 300,000. Her hemoglobin was stable at 11.5 upon dismissal from rehabilitation. Please see a copy of the history and physical examination as well as discharge summary faxed separately for further details. Please note that I did give her a prescription for hydrocodone/acetaminophen 5/ 325 #15 at the time of dismissal. Thank you for allowing us to be involved in this nice patient's care. Please contact me directly should you have any questions regarding their stay on the inpatient rehabilitation unit. Sincerely, Remington Wilson M.D.
[2017-06-30] MEDS: HYDROCODONE/APAP 5mg/325mg TABLET PO PRN (13:28)
[2017-06-30 16:03] VITALS: BP 156/67; PULSE 75; TEMP 98.5; O2SAT 90
[2017-06-30] MEDS: RIVAROXABAN 20 MG TABLET PO SCH (17:19)
== END 2017-06-30 19:00 | disposition home health service (06) | DRG 560 ==
PROVIDERS: ADMIT Internal Medicine; ATTEND Internal Medicine